=== PATIENT | male | born 1950 | race Caucasian/White ===

== ENCOUNTER 2017-05-25 11:22 | Emergency (ER) | payer OTHER, BC ==
[~2017-05-25] VITALS: Ht 172.7 cm; Wt 153.0 kg
[~2017-05-25 11:22] MED LIST: AMLO5TAB2 PO; ASCO10003 PO; CHOL100027 PO; CLC100X PO; DABI150C PO; DOXA-10 PO; FENO145T26 PO; INSUINJ4 SC; LANS30CA63 PO; LSX40 PO; MULT-221 PO; NTRSLP4 SL; NVLGI SC; OMEGCAP2 PO; POTA-331 PO; PRAV20TA2 PO; SPR25 PO; TPRSR25 PO; ULT50X PO; VALS320T PO
[2017-05-25 11:29] VITALS: Ht 172.7 cm; Wt 153.0 kg
[2017-05-25] MEDS ORDERED: ONDANSETRON INJ 2 MG/ML 2 ML VIAL IV STA (12:22)
[2017-05-25] MEDS ORDERED: MoRPHine SULFATE 4 MG/ML 1 ML CARP\\VIAL IV STA ×2 (12:22→15:15)
[2017-05-25] MEDS ORDERED: CALC0.2510 PO (12:28)
[2017-05-25] MEDS ORDERED: AMLO10TA2 PO (12:28)
[2017-05-25] MEDS ORDERED: PEDICHW50 PO (12:28)
[2017-05-25] MEDS ORDERED: NVLG (12:28)
[2017-05-25] MEDS ORDERED: EZET10TA63 PO (12:28)
[2017-05-25] MEDS ORDERED: INSDGI SC (12:28)
[2017-05-25] MEDS ORDERED: CYAN100020 PO (12:28)
[2017-05-25] MEDS ORDERED: METO50TA7 PO (12:28)
[2017-05-25] MEDS ORDERED: APIX1TAB3 PO (12:28)
--- NOTE | 2017-05-25 12:38 | EMERGENCY ROOM VISIT NOTE ---
History Report prepared by Monica: Korey Rooney Under the Supervision of: Dr. Darnell Peters M.D. First contact with patient: 12:13 Chief Complaint: BACK PAIN Stated Complaint: EXTREME BACK PAIN History of Present Illness The patient is a 66 year old male who presents to the Emergency Room with complaints of worsening lower right back pain starting 2 days ago days ago after a mechanical fall. He states that the pain does not hurt when he breathes , and he states that it is a sharp pain which is worsened with movement. The patient states that he was getting out of bed and was startled and fell. He states that he hurt his back, his left knee, and his left great toe. The patient states that he did not pass out or hit his head. He denies any head pain , neck pain, chest pain, shortness of breath, numbness, weakness, trouble with his bowels, and any urinary symptoms. The patient notes that he is currently on Eluiquis for A-fib, and he has a pacemaker. Source of History: patient Onset: 2 days ago Position: back (lower) Quality: sharp Timing: worsening Modifying Factors (Worsening): movement Associated Symptoms: No headache, No neck pain, No chest pain, No SOB, No urinary symptoms Review of Systems See HPI for pertinent positives & negatives. A total of 10 systems reviewed and were otherwise negative. Past Medical & Surgical Medical Problems: (1) COPD (chronic obstructive pulmonary disease) (2) Diabetes (3) Hypertension Old medical records were reviewed. Nurse's notes were reviewed and I agree with. Family History No pertinent family history Social History Smoking Status: Never Smoker Marital Status: single Housing Status: lives with family Occupation Status: retired Current/Historical Medications Scheduled Amlodipine Besylate (Norvasc), 10 MG PO DAILY Apixaban (Eliquis), 5 MG PO BID Calcitriol (Rocaltrol Cap), 0.25 MCG PO DAILY Cyanocobalamin (Vitamin B12), 1,000 MCG PO DAILY Doxazosin Mesylate (Doxazosin Mesylate), 16 MG PO QPM Ezetimibe (Zetia), 10 MG PO DAILY Fenofibrate (Tricor), 145 MG PO QPM Insulin Aspart (Novolog), QPM Insulin Glargine (Lantus), 25 UNITS SC QAM Lansoprazole (Prevacid), 30 MG PO DAILY Metoprolol Succ (Toprol Xl) (Toprol-Xl), 50 MG PO DAILY Pediatric Multiple Vitamin W/ (Flintstones Chewable), 1 TAB PO BID Pravastatin Sodium (Pravachol), 20 MG PO QPM Valsartan (Diovan), 320 MG PO DAILY Scheduled PRN Nitroglycerin (Nitrostat), 0.4 MG SL UD PRN for Chest Pain Oxycodone Immediate Rel Tab (Roxicodone Ir), 1-2 TAB PO Q4H PRN for Severe Pain Tramadol HCl (Tramadol HCl), 25 MG PO Q6H PRN for Pain Allergies Coded Allergies: No Known Allergies (Unverified , 05/25/17) Physical Exam Vital Signs Date Time Temp Pulse Resp B/P (MAP) Pulse Ox O2 Delivery O2 Flow Rate FiO2 05/25/17 15:55 36.4 68 18 117/68 92 Room Air 05/25/17 14:21 54 14 154/70 05/25/17 12:54 68 14 97 05/25/17 11:29 36.8 62 20 152/75 95 Room Air Physical Exam General: Non-ill appearing obese older male in no acute distress. HEENT: Normal cephalic atraumatic. Pupils are equal round and reactive to light. Extraocular movements are intact. Oropharynx is pink with moist mucous membranes. No swelling of the mouth lips or tongue. Neck: Supple with a midline trachea. No meningeal signs or stiffness, no JVD or bruits. No Stridor. Chest: Clear to auscultation bilaterally. No wheezes or rhonchi. No increased work of breathing. Heart: regular rate and rhythm. Abdomen: Soft nontender, nondistended without rebound guarding or rigidity. Extremities: Chronic edematous changes with chronic skin changes in the bilateral lower extremities. No cyanosis clubbing No calf tenderness or assymetry Spine/Back. Moderate sized bruise in the right flank and redness of the skin. Non tender to palpation. No CVA tenderness Skin: Good turgor without rashes. Neurologic exam: Cranial nerves two through 12 are intact. Motor and sensation are intact and symmetrical throughout. Medical Decision & Procedures ER Provider Diagnostic Interpretation: Radiology results as stated below per my review and radiologist interpretation: LUMBAR SPINE CT CT DOSE: 3568.70 mGy.cm HISTORY: Back pain. Fall. eval for trauma TECHNIQUE: Multiaxial CT images of the lumbar spine were performed and reformatted in the sagittal and coronal plane without the use of contrast. A dose lowering technique was utilized adhering to the principles of ALARA. COMPARISON: None. FINDINGS: No fractures of dictation within the lumbar spine. Moderate to severe degenerative disc disease with endplate osteophytes seen throughout the lumbar spine. 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 Paraspinal soft tissues are within normal limits. Mild discharge scoliosis of the lumbar spine. IMPRESSION: No fractures within the lumbar spine. Advanced degenerative changes. Electronically signed by: Candido Brown M.D. 05/25/2017 2:19 PM Dictated Date/Time: 05/25/2017 2:[address] ABD/PELVIS IV CONTRAST ONLY CLINICAL HISTORY: Abdominal pain status post trauma COMPARISON STUDY: None. TECHNIQUE: Following the IV administration of 120 mL of Optiray-320, CT scan of the abdomen and pelvis was performed from the lung bases to the proximal femurs. Images are reviewed in the axial, sagittal, and coronal planes. IV contrast was administered without complication. A dose lowering technique was utilized adhering to the principles of ALARA. CT DOSE: FINDINGS: Lower chest: There are bibasal atelectatic changes. There is respiratory motion artifact. Liver: There is hepatic steatosis. There is a slight lobulated contour of the serosal surface. Early cirrhosis cannot be excluded. Gallbladder: Unremarkable. Spleen: Normal in size and attenuation. Pancreas: Unremarkable. Adrenal glands: There is a 15 mm left adrenal nodule Kidneys: There is symmetric renal cortical enhancement. The kidneys are normal in size without hydronephrosis. Bowel: There are no transition zones indicate bowel obstruction. There is no interloop fluid. There are no extraluminal gas collections. Peritoneum: There is no intraperitoneal free air or abdominal ascites. Vasculature: There is an indwelling IVC filter. Adenopathy: There are borderline enlarged bilateral femoral and inguinal lymph nodes. Pelvic viscera: The bladder, and pelvic viscera are unremarkable. Skeletal structures: There are multilevel degenerative changes in the spine. No fractures are visualized. IMPRESSION: 1. No evidence of acute intra-abdominal or pelvic injury 2. 15 mm left adrenal gland nodule 3. Hepatic steatosis 4. Borderline enlarged femoral and inguinal lymph nodes Electronically signed by: Zaheer Braxton M.D. 05/25/2017 3:13 PM Dictated Date/Time: 05/25/2017 3:08 PM Medications Administered Medications (Trade) Dose Ordered Sig/Nata Route Start Time Stop Time Status Last Admin Dose Admin Morphine Sulfate (MoRPHine SULFATE INJ) 4 mg NOW STAT IV 05/25/17 12:22 05/25/17 12:25 DC 05/25/17 12:39 4 MG Ondansetron HCl (Zofran Inj) 4 mg NOW STAT IV 05/25/17 12:22 05/25/17 12:25 DC 05/25/17 12:39 4 MG Morphine Sulfate (MoRPHine SULFATE INJ) 4 mg NOW STAT IV 05/25/17 15:15 05/25/17 15:16 DC 05/25/17 15:20 4 MG Oxycodone HCl (Roxicodone Immediate Rel 5MG Home Pack) 1 homepack UD ONCE PO 05/25/17 15:45 05/25/17 15:46 DC 05/25/17 15:51 1 HOMEPACK ED Course 1213: Past medical records reviewed. The patient was evaluated in room A12, and a complete history and physical examination were performed. 1222: Zofran 4mg IV, Morphine Sulfate 4mg IV 1317: I reevaluated the patient, and she is more comfortable after getting pain medications. He is waiting on getting a CT scan. 1515: Morphine Sulfate 4mg IV 1527: Upon reevaluation, the patient is feeling more comfortable. I discussed the results and treatment plan with him. He verbalized agreement of the treatment plan. The patient was discharged home. 1545: Oxycodone HCl Home Pack PO Medical Decision Differentials include, but are not limited to; trauma, hemorrhage, orthopedic injury This patient comes in as described above. He was placed in room a 12. He fell a couple days ago and has had right flank pain. He is on Elliquis. He is tender on palpation there as well. Given the fact that he is on a blood thinner , I do think we need to do imaging. A CAT scan of his abdomen and back there are no acute findings to explain his symptoms. He does have a some an incidental findings which I explained to him and he should follow-up with his regular doctor. While he was here, he did receive IV morphine and IV Zofran and was feeling better with this. He has no acute electrolyte or metabolic abnormalities. No significant anemia. He is nothing to suggest urinary tract infection. He has no other complaints. he received initial dose of morphine IV and when he goes home he can use OxyIR for pain one or 2 pills every 4-6 hours as needed. He was warned that this could make him drowsy and do not take before drinking, driving, working. He was happy with the plan and discharged to home. Medication Reconcilliation Current Medication List: was personally reviewed by me Blood Pressure Screening Patient's blood pressure: Elevated blood pressure Blood pressure disposition: Elevated BP felt to be situational Impression Primary Impression: Right flank pain Additional Impressions: Back contusion Current use of [facility] anticoagulation Scribe Attestation The scribe's documentation has been prepared under my direction and personally reviewed by me in its entirety. I confirm that the note above accurately reflects all work, treatment, procedures, and medical decision making performed by me. Departure Information Dispostion Home / Self-Care Prescriptions Oxycodone Immediate Rel Tab (ROXICODONE IR) 5 Mg Tab 1-2 TAB PO Q4H Y for Severe Pain, #24 TAB Prov: Darnell Peters M.D. 05/25/17 Referrals No Doctor, Assigned (PCP) Forms HOME CARE DOCUMENTATION FORM, IMPORTANT VISIT INFORMATION Patient Instructions My [facility] Additional Instructions Rest Drink plenty of fluids Be careful when getting up and down. For pain, may use OxyIR 5 mg, one or 2 pills every 4-6 hours as needed OxyIR may make you drowsy- do not take before drinking, driving, working Follow-up with your doctor in the next couple days for recheck if not better or return to the ER at any point if symptoms worsen Problem Qualifiers
[2017-05-25] MEDS ORDERED: OPTIRAY 320 IV PRN (12:45)
--- NOTE | 2017-05-25 14:21 | DIAGNOSTIC IMAGING REPORT ---
LUMBAR SPINE CT CT DOSE: 3568.70 mGy.cm HISTORY: Back pain. Fall. eval for trauma TECHNIQUE: Multiaxial CT images of the lumbar spine were performed and reformatted in the sagittal and coronal plane without the use of contrast. A dose lowering technique was utilized adhering to the principles of ALARA. COMPARISON: None. FINDINGS: No fractures of dictation within the lumbar spine. Moderate to severe degenerative disc disease with endplate osteophytes seen throughout the lumbar spine. 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 Paraspinal soft tissues are within normal limits. Mild discharge scoliosis of the lumbar spine. IMPRESSION: No fractures within the lumbar spine. Advanced degenerative changes. Electronically signed by: Candido Brown M.D. 05/25/2017 2:19 PM Dictated Date/Time: 05/25/2017 2:17 PM
--- NOTE | 2017-05-25 15:14 | DIAGNOSTIC IMAGING REPORT ---
CT ABD/PELVIS IV CONTRAST ONLY CLINICAL HISTORY: Abdominal pain status post trauma COMPARISON STUDY: None. TECHNIQUE: Following the IV administration of 120 mL of Optiray-320, CT scan of the abdomen and pelvis was performed from the lung bases to the proximal femurs. Images are reviewed in the axial, sagittal, and coronal planes. IV contrast was administered without complication. A dose lowering technique was utilized adhering to the principles of ALARA. CT DOSE: FINDINGS: Lower chest: There are bibasal atelectatic changes. There is respiratory motion artifact. Liver: There is hepatic steatosis. There is a slight lobulated contour of the serosal surface. Early cirrhosis cannot be excluded. Gallbladder: Unremarkable. Spleen: Normal in size and attenuation. Pancreas: Unremarkable. Adrenal glands: There is a 15 mm left adrenal nodule Kidneys: There is symmetric renal cortical enhancement. The kidneys are normal in size without hydronephrosis. Bowel: There are no transition zones indicate bowel obstruction. There is no interloop fluid. There are no extraluminal gas collections. Peritoneum: There is no intraperitoneal free air or abdominal ascites. Vasculature: There is an indwelling IVC filter. Adenopathy: There are borderline enlarged bilateral femoral and inguinal lymph nodes. Pelvic viscera: The bladder, and pelvic viscera are unremarkable. Skeletal structures: There are multilevel degenerative changes in the spine. No fractures are visualized. IMPRESSION: 1. No evidence of acute intra-abdominal or pelvic injury 2. 15 mm left adrenal gland nodule 3. Hepatic steatosis 4. Borderline enlarged femoral and inguinal lymph nodes Electronically signed by: Zaheer Braxton M.D. 05/25/2017 3:13 PM Dictated Date/Time: 05/25/2017 3:08 PM
[2017-05-25] MEDS ORDERED: OXYC1TAB3 PO (15:32)
[2017-05-25] MEDS ORDERED: OXYCODONE IR HOME PACK PO ONE (15:45)
[2017-05-25 15:55] VITALS: BP 117/68; PULSE 68; TEMP 36.4; O2SAT 92
== END 2017-05-25 16:08 | disposition home or self-care (01) ==
LOC: C.EDB 11:23 → C.EDA 16:08
DX: S30.0XXA Contusion of lower back and pelvis, initial encounter (principal); R10.9 Unspecified abdominal pain; W06.XXXA Fall from bed, initial encounter; Y92.013 Bedroom of single-family (private) house as the place of occurrence of the external cause; I48.91 Unspecified atrial fibrillation; Z95.0 Presence of cardiac pacemaker; Z79.01 Long term (current) use of anticoagulants; J44.9 Chronic obstructive pulmonary disease, unspecified; E11.9 Type 2 diabetes mellitus without complications; I10 Essential (primary) hypertension; Z79.4 Long term (current) use of insulin; Z79.899 Other long term (current) drug therapy